=== PATIENT | male | born 1960 | race African-American/Black ===

== ENCOUNTER 2019-06-14 12:55 | Emergency (ER) | payer SELFPAY, OTHER | END 2019-06-14 17:14 | LOC: JER 12:55 ==

== ENCOUNTER 2021-08-12 11:03 | Emergency (ER) | payer OTHER ==
[2021-08-12 11:27] VITALS: BP 151/96; PULSE 78; TEMP 98.3; BMI 33.4
== END 2021-08-12 13:28 | disposition home or self-care (01) ==
LOC: JER 11:03
DX: R09.81 Nasal congestion (principal); Z11.52 Encounter for screening for COVID-19
CPT/HCPCS: 99283-25; C9803; U0003; U0005

== ENCOUNTER 2021-12-31 14:28 | Emergency (ER) | payer OTHER ==
[2021-12-31 14:45] VITALS: BP 145/90; PULSE 93; TEMP 98; BMI 30.7
[2021-12-31] MEDS ORDERED: METHOCARBAMOL 750 MG TABLET PO ONE (15:35)
[2021-12-31] MEDS ORDERED: METHOCARBAMOL 500 MG TABLET ONE (15:38)
== END 2021-12-31 15:39 | disposition home or self-care (01) ==
LOC: JERFT 14:28
DX: M54.50 Low back pain, unspecified (principal)
CPT/HCPCS: 99283-25

== ENCOUNTER 2024-06-24 05:49 | Emergency (ER) | payer OTHER ==
[2024-06-24 05:56] VITALS: BP 134/89; PULSE 73; RESP 18; TEMP 98.6; BMI 33.5
[2024-06-24] MEDS ORDERED: metroNIDAZOLE 250 MG TABLET ONE (06:09)
[2024-06-24] MEDS: metroNIDAZOLE 250 MG TABLET PO ONE (06:15)
[2024-06-24] MEDS ORDERED: diphenhydrAMINE HCL 25 MG CAPSULE (FP) PO ONE (06:16)
[2024-06-24] MEDS ORDERED: DEXAMETHASONE SOD PHOSPHATE 10 MG/1 ML VIAL ONE (06:17)
[2024-06-24] MEDS: diphenhydrAMINE HCL 25 MG CAPSULE (FP) PO ONE (06:19)
[2024-06-24] MEDS: DEXAMETHASONE SOD PHOSPHATE 10 MG/1 ML VIAL IM ONE (06:19)
== END 2024-06-24 06:21 | disposition home or self-care (01) ==
LOC: JER 05:49
PROC: 3E023GC Introduction of Other Therapeutic Substance into Muscle, Percutaneous Approach (ICD-10-PCS; principal; 2024-06-24)
DX: K04.7 Periapical abscess without sinus (principal); R51.9 Headache, unspecified; R22.0 Localized swelling, mass and lump, head; T36.0X5A Adverse effect of penicillins, initial encounter; Z88.0 Allergy status to penicillin
CPT/HCPCS: 96372; 99284-25; J1100

== ENCOUNTER 2024-09-06 10:36 | Emergency (ER) | payer OTHER ==
[2024-09-06 10:44] VITALS: BP 137/91; PULSE 87; RESP 16; TEMP 97.7; BMI 36.5
[2024-09-06] MEDS ORDERED: IBUPROFEN 600 MG TABLET (FP) PO ONE (11:36)
[2024-09-06] MEDS: IBUPROFEN 600 MG TABLET (FP) PO ONE (11:38)
== END 2024-09-06 14:41 | disposition home or self-care (01) ==
LOC: JERFT 10:36
DX: M65.311 Trigger thumb, right thumb (principal)
CPT/HCPCS: 73130-TC-RT-FY; 99283-25